=== PATIENT | female | born 1970 | race American Indian/Alaskan Native ===

== ENCOUNTER 2023-07-05 15:49 | Outpatient (CLI) | payer OTHER, SELFPAY | END 2023-07-05 15:50 | disposition home or self-care (01) | PROVIDERS: PCP Family Medicine; Visit Provider Family Medicine | DX: E03.9 Hypothyroidism, unspecified (principal); R74.8 Abnormal levels of other serum enzymes; D50.9 Iron deficiency anemia, unspecified | CPT/HCPCS: 80053; 83615; 84443; 86803; 87340 ==

== ENCOUNTER 2025-02-09 15:18 | Outpatient (CLI) | payer OTHER, SELFPAY | END 2025-02-09 15:19 | disposition home or self-care (01) | PROVIDERS: PCP Family Medicine; Visit Provider Family Medicine | DX: E03.9 Hypothyroidism, unspecified (principal); R74.8 Abnormal levels of other serum enzymes; D50.9 Iron deficiency anemia, unspecified | CPT/HCPCS: 80053; 84443 ==

== ENCOUNTER 2025-02-21 10:52 | Outpatient (CLI) | payer OTHER, SELFPAY ==
--- NOTE | 2025-02-21 11:30 | CRLHL7_ITS ---
For Patients: As a result of the Century Cures Act, medical imaging exams and procedure reports are released immediately into your electronic medical record. You may view this report before your referring provider. If you have questions, please contact your health care provider. INDICATION: Elevated LFTs COMPARISON: 07/18/2014 TECHNIQUE: Real time ugarte scale imaging and color Doppler analysis was performed of the right upper quadrant. FINDINGS: Liver echotexture is mildly coarsened. Liver measures 15.2 cm. No intrahepatic mass. There is a normal appearance of the hepatic IVC and proximal abdominal aorta. There is no evidence of ascites. The gallbladder is absent. The common bile duct is of normal size and measures 6 mm in diameter at the level of the joseph hepatis. Visualized pancreas is normal. There is no evidence of a stone or hydronephrosis within the right kidney. The right kidney measures 10.4 cm in length. IMPRESSION: Mild hepatic steatosis. Status post cholecystectomy. No biliary obstruction. Dictated by Matthew Gallardo MD @ 02/21/2025 11:33:28 AM (Electronically Signed)
== END 2025-02-21 10:53 | disposition home or self-care (01) ==
LOC: US 10:53
PROVIDERS: PCP Family Medicine; Visit Provider Family Medicine
DX: R74.8 Abnormal levels of other serum enzymes (principal); K76.0 Fatty (change of) liver, not elsewhere classified
CPT/HCPCS: 76705